=== PATIENT | female | born 1965 | race African-American/Black ===

== ENCOUNTER 2017-02-05 16:35 | Emergency (ER) | payer OTHER ==
[2017-02-05 16:53] VITALS: BP 126/71; PULSE 66; TEMP 98; BMI 31.4
--- NOTE | 2017-02-05 17:35 | PDOC ---
History of Present Illness - General Chief Complaint: Injury Stated Complaint: FALL/INJURY Time Seen by Provider: 02/05/17 17:11 History Source: Patient Exam Limitations: No Limitations - History of Present Illness Initial Comments: 02/05/17 17:32 CHIEF COMPLAINT: Left knee pain, mechanical fall one week ago HISTORY OF PRESENT ILLNESS: Patient is a 51-year-old female with history of hypertension status post mechanical fall one week ago onto left knee thought it was feeling better today she hit it getting out of the car and states "I saw stars" pain to patella. Patient able to ambulate with a limp. No deformity. REVIEW OF SYSTEMS: GENERAL: Afebrile, A&O x3 RESPIRATORY: No cough, wheezing, or hemoptysis. CARDIAC: No CP or SOB MUSCULOSKELETAL: Pain to left anterior knee SKIN : No erythema, no edema, no bruising, no deformity. NEUROLOGICAL: Denies any numbness or tingling. PHYSICAL EXAM: GENERAL: The patient is awake, alert, and fully oriented, in no acute distress. HEAD: Normal with no signs of trauma. RESPIRATORY: Lungs clear bilaterally no rhonchi, rales, or wheezes CARDIAC: S1-S2 audible, no murmur rub or gallop EXTREMITIES: Decreased range of motion to left knee related to pain, no fluid appreciated, no bulge sign. No pain to superior or inferior patella. Negative drop test. Negative posterior leg test. No joint laxity noted, no ecchymosis, no deformity, no abrasions ,no edema. +3 popliteal pulse. Negative Homans sign. No calf pain or tenderness, no erythema or edema. MUSCULOSKELETAL: No spinal point tenderness. SKIN: Warm, Dry, normal turgor, no erythema, no edema no bruising. Past History - Past Medical History Allergies/Adverse Reactions: Allergies Allergy/AdvReac Type Severity Reaction Status Date / Time No Known Allergies Allergy Verified 02/05/17 16:50 Home Medications: Ambulatory Orders Losartan/Hydrochlorothiazide [Losartan-Hctz 100-25 mg Tab] 1 each PO DAILY 11/14 Potassium Chloride [K-Dur -] 20 meq PO DAILY 11/14/12 Ibuprofen [Motrin -] 600 mg PO QID #28 tablet 02/05/17 Metoprolol Tartrate 50 mg PO BID 02/05/17 Oxybutynin Chloride [Ditropan Xl] 5 mg PO DAILY 02/05/17 Oxycodone HCl/Acetaminophen [Percocet 5-325 mg Tablet] 1 tab PO Q6H #12 tablet MDD 4 02/05/17 HTN: Yes - Immunization History Immunization Up to Date: Yes - Psycho/Social/Smoking Cessation Hx Anxiety: No Suicidal Ideation: No Smoking Status: No Smoking History: Never smoked Have you smoked in the past 12 months: No Number of Cigarettes Smoked Daily: 0 Information on smoking cessation initiated: No Hx Alcohol Use: No Drug/Substance Use Hx: No Substance Use Type: None Hx Substance Use Treatment: No *Physical Exam - Vital Signs Last Vital Signs Temp Pulse Resp BP Pulse Ox 98.0 F 66 17 126/71 98 02/05/17 16:50 02/05/17 16:50 02/05/17 16:50 02/05/17 16:50 02/05/17 16:50 ED Treatment Course - RADIOLOGY Radiology Studies Ordered: Category Date Time Status KNEE 3 POS-LEFT [RAD] Stat Radiology 02/05/17 17:28 Ordered Medical Decision Making - Medical Decision Making 02/05/17 17:35 A/P: Patient sent to x-ray to rule out acute fracture 02/05/17 18:57 Wet read of x-ray demonstrates a nondisplaced patella fracture, we'll place knee immobilizer on, follow-up with orthopedics. I discussed the physical exam findings, ancillary test results and final diagnoses with the patient. I answered all of the patient's questions. The patient was satisfied with the care received and felt comfortable with the discharge plan and treatment plan. The patient will call to arrange follow-up and will return to the Emergency Department with any new, persistent or worsening symptoms. *DC/Admit/Observation/Transfer Diagnosis at time of Disposition: Patella fracture Qualifiers: Encounter type: initial encounter Fracture type: closed Fracture morphology: other fracture Laterality: left Qualified Code(s): S82.092A - Other fracture of left patella, initial encounter for closed fracture - Discharge Dispostion Disposition: HOME Condition at time of disposition: Good Admit: No - Prescriptions Prescriptions: Ibuprofen [Motrin -] 600 mg PO QID #28 tablet Oxycodone HCl/Acetaminophen [Percocet 5-325 mg Tablet] 1 tab PO Q6H #12 tablet MDD 4 - Referrals Referrals: Nguyễn Nielsen MD [Staff Physician] - - Patient Instructions Printed Discharge Instructions: Patella Fracture Additional Instructions: 1. Please return to the emergency department with any redness, swelling, increased pain, or any other concerns. 2. Keep splint on. 3. Please follow up in the office of Dr. Nielsen 4. No weightbearing 5. Ice and elevate when at rest. 6. Motrin for minor pain, percocet for severe pain, may cause drowsiness or dizziness - Post Discharge Activity Work/School Note: Back to Work
== END 2017-02-05 19:06 | disposition home or self-care (01) ==
LOC: JERFT 16:35
PROC: 2W3RX1Z Immobilization of Left Lower Leg using Splint (ICD-10-PCS; principal; 2017-02-05)
DX: S82.092A Other fracture of left patella, initial encounter for closed fracture (principal); W18.30XA Fall on same level, unspecified, initial encounter; Y93.9 Activity, unspecified; Y92.9 Unspecified place or not applicable; I10 Essential (primary) hypertension
CPT/HCPCS: 73562-TC-LT; 99281-25

== ENCOUNTER 2021-08-17 14:40 | Emergency (ER) | payer OTHER ==
[2021-08-17 15:08] VITALS: BP 147/88; PULSE 69; TEMP 98; BMI 29.1
[2021-08-17 17:23] LABS: BASO % 0.2 % (0-2.0); EOS % 1.2 % (0-4.5); HEMATOCRIT 35.4 % (32.4-45.2); HEMOGLOBIN 11.8 GM/dL (10.7-15.3); LYMPH % 31.4 % (8-40); MCH 27.6 pg (25.7-33.7); MCHC 33.3 g/dl (32.0-36.0); MEAN PLT VOLUME 9.6 fl (7.5-11.1); NEUT % 59.2 % (42.8-82.8); PLATELET COUNT 203 10^3/uL (134-434); RBC 4.27 M/mm3 (3.60-5.2); RDW 13.4 % (11.6-15.6)
[2021-08-17 17:35] LABS: ALBUMIN 3.9 g/dl (3.4-5.0); CALCIUM 9.4 mg/dL (8.5-10.1)
[2021-08-17 17:36] LABS: BLOOD UREA NITROGEN 13.5 mg/dL (7-18)
[2021-08-17 17:39] LABS: CREATININE 0.7 mg/dL (0.55-1.3)
[2021-08-17 17:40] LABS: BILIRUBIN,TOTAL 0.8 mg/dL (0.2-1); TOT PROT 7.5 g/dl (6.4-8.2)
== END 2021-08-17 20:02 | disposition home or self-care (01) ==
LOC: JER 14:40
DX: R07.9 Chest pain, unspecified (principal)
CPT/HCPCS: 36415; 71045-TC-FY; 80053; 84484; 85025; 93005; 93010; 99285-25